=== PATIENT | female | born 1960 ===

== ENCOUNTER 2020-08-15 10:02 | Emergency (ER) | payer OTHER ==
[~2020-08-15] VITALS: Ht 149.9 cm; Wt 55.3 kg
[2020-08-15] MEDS ORDERED: LISINOPRIL10 MG (10:15)
[2020-08-15] MEDS ORDERED: HUMULIN N100 UNIT/2 SUBCUTANEO (10:16)
[2020-08-15] MEDS ORDERED: SIMVASTATIN20 MG (10:17)
[2020-08-15] MEDS ORDERED: SYMBICORT 16010.2 GM (10:19)
[2020-08-15] MEDS ORDERED: NORFLEX100MG PO (13:38)
== END 2020-08-15 13:53 | disposition home or self-care (01) ==
LOC: ER 10:02
DX: M54.2 Cervicalgia (principal); M54.5 Low back pain

== ENCOUNTER 2021-01-12 10:24 | Outpatient (CLI) | payer OTHER ==
[~2021-01-12 10:24] MED LIST: HUMULIN N100 UNIT/2 SUBCUTANEO; LISINOPRIL10 MG; NORFLEX100MG PO; SIMVASTATIN20 MG; SYMBICORT 16010.2 GM
== END 2021-01-12 10:30 | disposition home or self-care (01) ==
LOC: RAD 10:24
DX: M79.671 Pain in right foot (principal)

== ENCOUNTER 2021-02-20 09:17 | Outpatient (CLI) | payer OTHER | END 2021-02-20 09:23 | disposition home or self-care (01) | LOC: RX STUDY 09:17 | PROVIDERS: ATTEND Internal Medicine Pulmonary Disease | DX: R13.19 Other dysphagia (principal); K22.8 Other specified diseases of esophagus ==

== ENCOUNTER 2021-02-20 11:02 | Emergency (ER) | payer OTHER ==
[~2021-02-20] VITALS: Ht 149.9 cm; Wt 54.9 kg
== END 2021-02-20 13:45 | disposition home or self-care (01) ==
LOC: ER 11:02
DX: R42 Dizziness and giddiness (principal)

== ENCOUNTER 2021-10-14 14:51 | Emergency (ER) | payer OTHER ==
[~2021-10-14] VITALS: Ht 144.8 cm; Wt 57.6 kg
[2021-10-14] MEDS ORDERED: ZYRTEC10 M3 (15:05)
[2021-10-14] MEDS ORDERED: SKELAXIN800 MG PO (17:14)
== END 2021-10-14 17:18 | disposition home or self-care (01) ==
LOC: ER 14:51
DX: M54.50 Low back pain, unspecified (principal)

== ENCOUNTER 2021-10-22 10:40 | Emergency (ER) | payer OTHER ==
[~2021-10-22] VITALS: Ht 144.8 cm; Wt 57.6 kg
[~2021-10-22 10:40] MED LIST changes: +SKELAXIN800 MG PO; +ZYRTEC10 M3
== END 2021-10-22 14:35 | disposition home or self-care (01) ==
LOC: ER 10:40
DX: M25.552 Pain in left hip (principal); M54.50 Low back pain, unspecified; I10 Essential (primary) hypertension; E11.9 Type 2 diabetes mellitus without complications; J45.998 Other asthma

== ENCOUNTER 2022-03-24 14:26 | Emergency (ER) | payer OTHER ==
[~2022-03-24] VITALS: Ht 144.8 cm; Wt 57.6 kg
== END 2022-03-24 18:00 | disposition home or self-care (01) ==
LOC: ER 14:26
DX: E11.65 Type 2 diabetes mellitus with hyperglycemia (principal); Z79.4 Long term (current) use of insulin; E86.0 Dehydration; I10 Essential (primary) hypertension; Z20.822 Contact with and (suspected) exposure to COVID-19

== ENCOUNTER 2022-04-29 12:45 | Emergency (ER) | payer OTHER ==
[~2022-04-29] VITALS: Ht 124.5 cm; Wt 57.6 kg
== END 2022-04-29 15:00 | disposition home or self-care (01) ==
LOC: ER 12:45
DX: E11.649 Type 2 diabetes mellitus with hypoglycemia without coma (principal); Z79.4 Long term (current) use of insulin

== ENCOUNTER 2022-06-09 16:30 | Emergency (ER) | payer OTHER ==
[~2022-06-09] VITALS: Ht 147.3 cm; Wt 56.7 kg
== END 2022-06-09 20:41 | disposition home or self-care (01) ==
LOC: ER 16:30
DX: S93.402A Sprain of unspecified ligament of left ankle, initial encounter (principal); X58.XXXA Exposure to other specified factors, initial encounter; Y93.9 Activity, unspecified; Y92.9 Unspecified place or not applicable; Y99.9 Unspecified external cause status; E11.9 Type 2 diabetes mellitus without complications; Z79.4 Long term (current) use of insulin; Z88.6 Allergy status to analgesic agent; Z88.0 Allergy status to penicillin

== ENCOUNTER 2022-10-31 18:48 | Emergency (ER) | payer OTHER ==
[~2022-10-31] VITALS: Ht 149.9 cm; Wt 56.2 kg
[2022-10-31] MEDS ORDERED: DOLOGEN CAPLET1 EACH PO (21:32)
[2022-10-31] MEDS ORDERED: ZITHROMAX500 MG PO (21:32)
[2022-10-31] MEDS ORDERED: TUSNEL LIQUID178 ML PO (21:32)
== END 2022-10-31 21:38 | disposition home or self-care (01) ==
LOC: ER 18:48
DX: E11.65 Type 2 diabetes mellitus with hyperglycemia (principal); Z79.4 Long term (current) use of insulin; U07.1 COVID-19; Z88.6 Allergy status to analgesic agent; Z88.0 Allergy status to penicillin

== ENCOUNTER 2023-11-10 12:30 | Emergency (ER) | payer OTHER ==
[~2023-11-10] VITALS: Ht 147.3 cm; Wt 55.8 kg
[~2023-11-10 12:30] MED LIST changes: +DOLOGEN CAPLET1 EACH PO; +TUSNEL LIQUID178 ML PO; +ZITHROMAX500 MG PO
[2023-11-10 17:50] LABS: PH,URINE 7.5 (5.0-8.0); URINE APPEARANCE Clear; URINE BILIRRUBIN Negative (NEGATIVE); URINE BLOOD Negative; URINE COLOR Yellow; URINE GLUCOSE Negative (NEGATIVE); URINE LEUKOCYTE Trace; URINE NITRATE Negative; URINE PROTEIN Negative (NEGATIVE); URINE UROBILINOGEN 0.2 E.U./dl
[2023-11-10 17:54] LABS: HEMATOCRIT 39.6 % (36.0-45.00); HEMOGLOBIN 13.4 g/dL (12.0-15.00); MEAN CELL VOLUME 90.1 fL (80.00-100.00); MEAN CORPUSCULAR HEMOGLOBIN 30.5 pg (27.00-32.0); MEAN CORPUSCULAR HGB CONC 33.8 g/dl (32.0-36.0); PLATELET COUNT 402 K/uL (150-450); RED BLOOD COUNT 4.39 M/uL (4.00-6.00); RED CELL DISTRIBUTION WIDTH 14.3 % (11.5-14.5)
[2023-11-10 17:55] LABS: URINE BACTERIA 25.1 uL (0.0-1933); URINE EPITHELIAL CELLS 4.6 uL (0.0-38.8); URINE RBC 9.3 uL (0.0-20.8); URINE WBC 4.4 uL (0.0-23.2)
[2023-11-10 18:16] LABS: CALCIUM 8.6 mg/dL (8.5-10.1); CREATININE SERUM 0.65 mg/dL (0.55-1.02); GFR 92.66; POTASSIUM 3.32 mEq/L (3.5-5.1)
== END 2023-11-10 19:36 | disposition home or self-care (01) ==
LOC: ER 12:30
PROVIDERS: General Practice
DX: R10.2 Pelvic and perineal pain (principal); E78.00 Pure hypercholesterolemia, unspecified; I10 Essential (primary) hypertension; E11.9 Type 2 diabetes mellitus without complications; Z79.4 Long term (current) use of insulin; Z88.6 Allergy status to analgesic agent; Z88.0 Allergy status to penicillin; D25.9 Leiomyoma of uterus, unspecified